=== PATIENT | female | born 2005 | race Caucasian/White ===

== ENCOUNTER 2024-03-26 20:52 | Emergency (ER) | payer SELFPAY ==
[~2024-03-26] VITALS: Ht 165.1 cm; Wt 54.5 kg
[2024-03-26 21:03] VITALS: BP 134/87; TEMP 98.2
[2024-03-26] MEDS ORDERED: NORCO 325 MG-51 TAB PO (21:52)
[2024-03-26] MEDS ORDERED: COLACE 100100 MG/CAP PO (21:52)
[2024-03-26] MEDS ORDERED: ANUSOL-HC SUPPO25 MG RC (21:52)
[2024-03-26 22:10] VITALS: PULSE 78
[2024-03-28] MEDS ORDERED: COLACE 100100 MG/CAP PO (16:01)
[2024-03-28] MEDS ORDERED: ANUSOL-HC SUPPO25 MG RC (16:01)
[2024-03-28] MEDS ORDERED: NORCO 325 MG-51 TAB PO (16:01)
== END 2024-03-26 22:10 | disposition home or self-care (01) ==
LOC: COL.ER 20:52
DX: K60.2 Anal fissure, unspecified (principal)